=== PATIENT | female | born 1950 | race Caucasian/White ===

== ENCOUNTER → 2017-03-30 | Outpatient (CLI) | payer BC ==
[~2017-03-30] MED LIST: ASPCH81 PO; ASPI-461 PO; CALCTAB5 PO; LEVO88TA3 PO; LOSA100T65 PO; MULT-506 PO; PARO1TAB27 PO; PARO30TA6 PO; PRAV20TA PO; SYNUNK PO; TPRSR25 PO
--- NOTE | 2017-03-30 15:52 | MAMMOGRAPHY REPORT ---
BILATERAL DIGITAL SCREENING MAMMOGRAM WITH CAD: 03/30/2017 CLINICAL HISTORY: Routine screening. Patient has no complaints. TECHNIQUE: Bilateral CC and MLO views were obtained. Current study was also evaluated with a Compute r Aided Detection (CAD) system. COMPARISON: Comparison is made to exams dated: 03/12/2016 mammogram, 03/11/2015 mammogram, 02/06/2014 m ammogram, 02/05/2013 mammogram, 01/31/2012 mammogram, and 01/27/2011 mammogram - [facility]. BREAST COMPOSITION: The tissue of both breasts is almost entirely fatty. FINDINGS: There are mild vascular calcifications in both breasts. There is a stable lymph node in t he superior posterior right breast. A few benign-appearing round and punctate microcalcifications. N o suspicious mass, architectural distortion or cluster of suspicious microcalcifications is seen. IMPRESSION: ACR BI-RADS CATEGORY 2: BENIGN There is no mammographic evidence of malignancy. A 1 year screening mammogram is recommended. The pa tient will receive written notification of the results. Approximately 10% of breast cancers are not detected with mammography. A negative mammographic report should not delay biopsy if a clinically suggestive mass is present. Lori Christianson M.D. ay/:03/30/2017 13:37:07 Metal Bonding Crib Attendant: Devora Santillan, [facility] letter sent: Normal 1/2 BI-RADS Code: ACR BI-RADS Category 2: Benign
== END | disposition home or self-care (01) ==
LOC: C.MAMM 13:19
PROVIDERS: ATTEND Obstetrics & Gynecology
DX: Z12.31 Encounter for screening mammogram for malignant neoplasm of breast (principal)

== ENCOUNTER 2017-05-11 14:13 | Emergency (ER) | payer BC ==
[~2017-05-11] VITALS: Ht 162.6 cm; Wt 80.4 kg
[~2017-05-11 14:13] MED LIST changes: -ASPI-461 PO; -LEVO88TA3 PO; -LOSA100T65 PO; -PARO30TA6 PO; -TPRSR25 PO
[2017-05-11 14:19] VITALS: TEMP 36.4; Ht 162.6 cm; Wt 80.4 kg
--- NOTE | 2017-05-11 14:52 | EMERGENCY ROOM VISIT NOTE ---
ED Visit Note First contact with patient: 14:29 CHIEF COMPLAINT: Forehead laceration HISTORY OF PRESENT ILLNESS: This 67-year-old female patient presents to the emergency department approximately one and half hours after cutting the right side of the forehead. The patient states she was walking around a pool, wearing flip flops, when she slid in the water and fell. The patient states she hit her head on the deck. The injury bled a lot initially, however the bleeding stopped shortly after the injury and there is no weakness or numbness of the area. Tetanus shot is not up-to-date. The patient reports throbbing pain which she rates 5/10. REVIEW OF SYSTEMS: A 6 system review of systems was completed with positives and pertinent negatives listed in the HPI. ALLERGIES: Lorazepam, morphine MEDICATIONS: Synthroid, Paxil, multivitamin, aspirin, Pravachol, losartan, metoprolol, CoQ10, vitamin E PMH: Hypothyroidism, anxiety, depression, hyperlipidemia, hypertension SOCIAL HISTORY: Lives locally with family. She denies drug, alcohol, tobacco use. PHYSICAL EXAM: Vital Signs: Reviewed Nurse's notes, vital signs stable. GENERAL : This is a 67-year-old female, in no acute distress, well-developed, well- nourished. NEURO: The patient is alert, oriented to person place and time, and coherent. Normal mini mental status exam. HEAD: Normocephalic, laceration as described below. EYES: Pupils are equal round and reactive to light and accommodation. EOMs are full and optic discs and fundi are normal. There is no swelling or discoloration of the tissue surrounding the eyes. EARS: External auditory canals clear without blood. NOSE: Patent without tenderness. No septal hematoma. FACE: No facial tenderness, except surrounding the laceration. NECK: Supple. There is no cervical spine tenderness. The patient does not have tenderness with movement of the neck. SKIN: There is a 0.5 cm long laceration in the right side of the forehead. It is superficial and the edges only mildly gape apart with traction, but lay well without traction. There is no foreign material in the wound and it looks clean. There is no active bleeding. No deep structures such as tendons or nerves are seen in the base of the wound. Sensation to pain and light touch is intact. EMERGENCY DEPARTMENT COURSE: I examined the patient. I discussed options with the patient including glue versus sutures. The patient states she prefers glue if at all possible. I do feel that the laceration is superficial enough that Dermabond is appropriate. Verbal consent was obtained to perform the procedure. The laceration on the right forehead was cleaned with betadine and sterile saline and there was no bleeding. The edges of the laceration were approximated and secured with 3 layers of Dermabond glue with good wound approximation. The patient tolerated the procedure well. The patient was given a tetanus booster. The patient was discharged home in stable condition. Blood pressure slightly elevated in the emergency Department, however the patient does have a history and does follow with a provider regarding her blood pressure. I do feel that this is situational due to the pain and stress of being in the emergency department. DIFFERENTIAL DIAGNOSIS: Facial laceration, contusion, concussion, closed head injury, intracranial hemorrhage, and others. DIAGNOSIS: Facial laceration DISCHARGE INSTRUCTIONS & TREATMENT: Proper wound care is essential for adequate wound healing and infection prevention. You can shower and clean the wound with soap and water. Do not scour over the wound, pat dry with a towel. Do not submerse the wound (i.e. bathe or dish wash) until the wound has fully healed. You can use an antibiotic ointment with a dressing over the wound for the first 3-4 days after the glue falls off if needed. After this time you may leave the wound dry and open to the air. For pain control, you can use the following iwuv-tcn-vxclzef medicines (if >12 yo): - Regular strength (325mg/tab) Tylenol (acetaminophen) 2 tabs every 4-6 hours as needed. Do not exceed 9 tablets in a 24 hour period. Avoid taking more than 3 grams (3000 mg) of Tylenol per day. This includes any other sources of acetaminophen you may take on a regular basis. - Regular strength (200 mg/tab) Advil (ibuprofen) 1-2 tabs every 4-6 hours as needed. Do not exceed a dose of 2400 mg per day. Please follow-up with your PCP in 2-3 days for recheck of the wound. Please watch for signs of infection including redness, pain, swelling, warmth, pus like drainage, or fever, chills, body aches. Please return to the emergency department if any of these symptoms occur. Current/Historical Medications Scheduled Aspirin (Aspirin), 81 MG PO DAILY Levothyroxine Sodium (Levothyroxine Sodium), 88 MCG PO DAILY Losartan Potassium (Cozaar), 100 MG PO DAILY Metoprolol Succinate (Metoprolol Succinate ER), 50 MG PO DAILY Multivitamin (Multivitamin), 1 TAB PO DAILY Paroxetine Hcl (Paroxetine Hcl), 30 MG PO DAILY Pravastatin (Pravachol ), 20 MG PO DAILY Allergies Coded Allergies: Lorazepam (Verified Adverse Reaction, Mild, HALLUCINATIONS, 10/15/11) Morphine (Verified Adverse Reaction, Mild, AGITATION, 10/15/11) Vital Signs Date Time Temp Pulse Resp B/P (MAP) Pulse Ox O2 Delivery O2 Flow Rate FiO2 05/11/17 15:01 66 16 139/72 95 05/11/17 14:19 36.4 71 18 162/90 96 Room Air Medications Administered Medications (Trade) Dose Ordered Sig/Dae Route Start Time Stop Time Status Last Admin Dose Admin Diphtheria/ Pertussis/Tetanus Vacc (Adacel Inj) 0.5 ml ONCE ONCE IM. 05/11/17 15:00 05/11/17 15:01 DC 05/11/17 15:03 0.5 ML Departure Information Impression Primary Impression: Facial laceration Dispostion Home / Self-Care Condition GOOD Referrals Alan Yanez D.OWesly (PCP) Patient Instructions ED Immunization Tetanus and FU, ED Laceration Facial Skin Glue, [facility] Additional Instructions Proper wound care is essential for adequate wound healing and infection prevention. You can shower and clean the wound with soap and water. Do not scour over the wound, pat dry with a towel. Do not submerse the wound (i.e. bathe or dish wash) until the wound has fully healed. You can use an antibiotic ointment with a dressing over the wound for the first 3-4 days after the glue falls off if needed. After this time you may leave the wound dry and open to the air. For pain control, you can use the following rsrk-fzf-tltjfyn medicines (if >12 yo): - Regular strength (325mg/tab) Tylenol (acetaminophen) 2 tabs every 4-6 hours as needed. Do not exceed 9 tablets in a 24 hour period. Avoid taking more than 3 grams (3000 mg) of Tylenol per day. This includes any other sources of acetaminophen you may take on a regular basis. - Regular strength (200 mg/tab) Advil (ibuprofen) 1-2 tabs every 4-6 hours as needed. Do not exceed a dose of 2400 mg per day. Please follow-up with your PCP in 2-3 days for recheck of the wound. Please watch for signs of infection including redness, pain, swelling, warmth, pus like drainage, or fever, chills, body aches. Please return to the emergency department if any of these symptoms occur. Problem Qualifiers Primary Impression: Facial laceration Encounter type: initial encounter Qualified Codes: S01.81XA - Laceration without foreign body of other part of head, initial encounter
[2017-05-11] MEDS ORDERED: DIPHTHERIA/TETANUS/PERTUSSIS 0.5 ML SYR/VIAL IM. ONE (15:00)
[2017-05-11 15:01] VITALS: BP 139/72; PULSE 66; O2SAT 95
[2017-05-11] MEDS ORDERED: ASPI-461 PO (15:20)
[2017-05-11] MEDS ORDERED: PARO30TA6 PO (15:27)
[2017-05-11] MEDS ORDERED: LOSA100T65 PO (15:27)
[2017-05-11] MEDS ORDERED: TPRSR25 PO (15:27)
[2017-05-11] MEDS ORDERED: LEVO88TA3 PO (15:27)
== END 2017-05-11 15:09 | disposition home or self-care (01) ==
LOC: C.EDB 14:15 → C.EDD 15:09
DX: S01.81XA Laceration without foreign body of other part of head, initial encounter (principal); W01.0XXA Fall on same level from slipping, tripping and stumbling without subsequent striking against object, initial encounter; Z23 Encounter for immunization; I10 Essential (primary) hypertension; E78.5 Hyperlipidemia, unspecified; E03.9 Hypothyroidism, unspecified; F41.9 Anxiety disorder, unspecified; F32.9 Major depressive disorder, single episode, unspecified; Z79.82 Long term (current) use of aspirin; Z79.899 Other long term (current) drug therapy; Z88.5 Allergy status to narcotic agent; Z88.8 Allergy status to other drugs, medicaments and biological substances

== ENCOUNTER → 2018-05-09 | Outpatient (CLI) | payer BC ==
[~2018-05-09] MED LIST changes: -ASPCH81 PO; +ASPI-461 PO; -CALCTAB5 PO; +LEVO88TA3 PO; +LOSA100T65 PO; -PARO1TAB27 PO; +PARO30TA6 PO; -SYNUNK PO; +TPRSR25 PO
--- NOTE | 2018-05-10 13:52 | MAMMOGRAPHY REPORT ---
BILATERAL DIGITAL SCREENING MAMMOGRAM TOMOSYNTHESIS WITH CAD: 05/09/2018 CLINICAL HISTORY: Routine screening. Patient has no complaints. Routine screening. Patient has no com plaints. TECHNIQUE: The study was acquired using full field digital technology and interpreted from soft copy. Breast tomosynthesis in addition to standard 2D mammography was performed. Current study was also ev aluated with a Computer Aided Detection (CAD) system. COMPARISON: Comparison is made to exams dated: 03/30/2017 mammogram, 03/12/2016 mammogram, 03/11/2015 ma mmogram, 02/06/2014 mammogram, 02/05/2013 mammogram, and 01/31/2012 mammogram - [facility]. BREAST COMPOSITION: There are scattered areas of fibroglandular density in both breasts. FINDINGS: There is a new 3 mm focal asymmetry with associated calcification in the 12:00 to 1:00 ante rior left breast, for which additional spot magnification views and possible ultrasound are recommend ed. There are other scattered stable benign-appearing rounded rim calcifications bilaterally. Mild vascu lar calcification in the breasts. No other suspicious mass, architectural distortion or cluster of mi crocalcifications is seen. IMPRESSION: ACR BI-RADS CATEGORY 0: INCOMPLETE EVALUATION: NEED ADDITIONAL IMAGING EVALUATION The new, 3 mm focal asymmetry with associated calcification in the upper outer anterior left breast n eeds additional evaluation. The patient will be called to schedule an appointment. Some breast cancers are not detected with mammography. A negative mammographic report should not gustavo y biopsy if a clinically suggestive mass is present. Lori Christianson M.D. ay/:05/09/2018 21:03:55 Poultry Barn Manager: RT Grace(Maynor)(M), [facility] letter sent: Addl Imaging 0 BI-RADS Code: ACR BI-RADS Category 0: Incomplete Evaluation: Need Additional Imaging Evaluation
== END | disposition home or self-care (01) ==
LOC: C.MAMM 13:26
PROVIDERS: ATTEND Obstetrics & Gynecology
DX: Z12.31 Encounter for screening mammogram for malignant neoplasm of breast (principal); N64.89 Other specified disorders of breast; R92.1 Mammographic calcification found on diagnostic imaging of breast

== ENCOUNTER → 2018-05-23 | Outpatient (CLI) | payer BC ==
--- NOTE | 2018-05-23 13:08 | Discharge Instructions ---
Discharge Instructions Procedure Procedure Date: May 23, 2018. Reason for visit: Left Calcs. Discharge Discharge Date: May 23, 2018. Discharge Diagnosis: status post breast biopsy Instructions Activity Recommendations: Additional Limitations (see below) Return to School/Work: no limitations Recommended Home Diet: No Limitations Provider Instructions: ACTIVITY RECOMMENDATIONS: * No lifting, pushing, pulling or exercising the affected side for three days. RETURN TO SCHOOL/WORK: * You may return to work/school after the procedure, but do not perform any strenuous activities for 24 to 48 hours. MEDICATIONS: * Tylenol (two 325 mg) every four to six hours if needed for mild pain (if not allergic to Tylenol). DIET: * Resume previous diet. SPECIAL CARE INSTRUCTIONS: * Keep biopsy site dry for 24 hours. May shower after 24 hours, but do not soak (bathe) incision. * May remove Tegaderm (plastic patch) 24 hours after procedure * Leave the steri-strips on for one week. Allow the steri-strips to fall off by themselves. If not off after one week, you may remove them. You may place a Bandaid crosswise over the strips, if desired. * Apply ice 10 minutes on and 10 minutes off as needed. * Wear a bra at bedtime to sleep more comfortably for 2-3 days. * Your referring physician should have the results after approximately 5 to 7 business days. * Call for unusual bleeding, fever, drainage, etc or if you have any questions call during normal business hours or after hours call Dr Strickland, [phone]. FOLLOW UP VISIT: Follow-up with Referring Physician as scheduled. Allergies Coded Allergies: Lorazepam (Verified Adverse Reaction, Mild, HALLUCINATIONS, 10/15/11) Morphine (Verified Adverse Reaction, Mild, AGITATION, 10/15/11) Fernie Crump Recommendations: Call your doctor if: * Temperature above 101 degrees * Pain not relieved by pain medicine ordered * There is increased drainage or redness from any incision * You have any unanswered questions or concerns. Your Doctors Instructions noted above were prepared by provider Sara Strickland. Patient Signature Section: Patient Instructions Signature Page Kenia Godfrey Patient (or Guardian) Signature/Date: I have read and understand the instructions given to me by my caregivers. Caregiver/RN/Doctor Signature/Date: The above-named patient and/or guardian has received patient instructions on this date. + Original Patient Signature Page (only) stays with chart. Please make copy for patient.
--- NOTE | 2018-05-23 14:48 | MAMMOGRAPHY REPORT ---
UNILATERAL LEFT DIGITAL DIAGNOSTIC MAMMOGRAM: 05/23/2018 CLINICAL HISTORY: Status post left breast stereotactic biopsy. TECHNIQUE: Postprocedural left CC and ML views were obtained. COMPARISON: Comparison is made to exams dated: 05/12/2018 mammogram, 05/09/2018 mammogram, 03/30/2017 ma mmogram, 03/12/2016 mammogram, and 03/11/2015 mammogram - [facility]. BREAST COMPOSITION: There are scattered areas of fibroglandular density in left breast. FINDINGS: A new biopsy marker clip is seen at the site of the biopsied asymmetry and associated calci fications in the left 12:00 breast. No significant postbiopsy hematoma is seen. IMPRESSION: POST PROCEDURE IMAGING FOR MARKER PLACEMENT New biopsy marker clip status post left breast stereotactic biopsy. Pathology results are pending. Some breast cancers are not detected with mammography. A negative mammographic report should not gustavo y biopsy if a clinically suggestive mass is present. Sara Strickland M.D. ah/:05/23/2018 13:22:30 Engineering Manager: RT Grace(Maynor)(M), [facility] BI-RADS Code: Post Procedure Imaging For Marker Placement
--- NOTE | 2018-05-23 14:48 | MAMMOGRAPHY REPORT ---
STEREOTACTIC GUIDED BIOPSY LEFT BREAST: 05/23/2018 CLINICAL HISTORY: Focal asymmetry with associated calcifications in the left 12:00 breast. PATIENT CONSENT: The procedure, risks, benefits, and alternatives of stereotactic biopsy with clip pl acement were discussed with the patient, and verbal and written consent was obtained. A timeout was performed immediately prior to the procedure. PROCEDURE DESCRIPTION: With stereotactic guidance, aseptic technique, and lidocaine as a local anesth etic (1% lidocaine to anesthetize the skin and 1% lidocaine with epinephrine to anesthetize the deepe r tissues), the focal asymmetry with associated calcifications in the left 12:00 breast was sampled m ultiple times with a 9-gauge vacuum-assisted biopsy needle (Xoft). The path of approach was c raniocaudal. The specimen radiograph demonstrates calcifications to be present in the samples. A me tallic marker clip was placed at the biopsy site. Postprocedural mammograms were obtained to confirm clip placement; see separate dictation for details. Direct pressure was applied at the biopsy site until hemostasis was achieved. The patient tolerated the procedure without complication. She was gi abe wound care instructions. COMPARISON: Comparison is made to exams dated: 05/12/2018 mammogram, 05/09/2018 mammogram, 03/30/2017 ma mmogram, 03/12/2016 mammogram, 03/11/2015 mammogram, and 02/06/2014 mammogram - [facility]. IMPRESSION: STEREOTACTIC GUIDED BIOPSY Stereotactic biopsy of indeterminate calcifications and associated asymmetry in the left 12:00 breast , with clip placement. The patient will receive pathology results from her referring provider. Sara Strickland M.D. /:05/23/2018 13:09:38 Fingerprint Technician: RT Grace(R)(M), [facility]
== END | disposition home or self-care (01) ==
LOC: C.MAMM 12:21
PROVIDERS: ATTEND Obstetrics & Gynecology
DX: R92.0 Mammographic microcalcification found on diagnostic imaging of breast (principal)